=== PATIENT | male | born 1975 | race Caucasian/White ===

== ENCOUNTER 2022-06-01 20:33 | Emergency (ER) | payer SELFPAY ==
[~2022-06-01] VITALS: Ht 177.8 cm; Wt 104.3 kg
[2022-06-01 20:59] VITALS: BP_SYST 167
[2022-06-01 21:50] LABS: BASOPHILS # (AUTO) 0.1 K/uL (0.0-0.2); BASOPHILS % (AUTO) 0.6 % (0.0-2.0); EOSINOPHILS # (AUTO) 0.1 K/uL (0.0-0.4); EOSINOPHILS % (AUTO) 1.3 % (0.0-4.0); HEMATOCRIT 44.3 % (36-54); HEMOGLOBIN 14.4 g/dL (14.0-18.0); LYMPHOCYTES # (AUTO) 2.9 K/uL (1.0-5.5); LYMPHOCYTES % (AUTO) 28.2 % (20.5-51.5); MEAN CORPUSCULAR HEMOGLOBIN 25 pg (27-31); MEAN CORPUSCULAR HGB CONC 33 % (32-36); MEAN CORPUSCULAR VOLUME 77 fL (79.0-98.0); MONOCYTES # (AUTO) 0.9 K/uL (0.0-1.0); MONOCYTES % (AUTO) 8.6 % (1.7-9.3); NEUTROPHILS # (AUTO) 6.3 K/uL (1.8-7.7); NEUTROPHILS % (AUTO) 61.3 % (40.0-70.0); PLATELET COUNT (AUTO) 233 K/uL (130-430); RED BLOOD CELL COUNT(AUTO) 5.76 MIL/uL (4.2-6.2); RED CELL DISTRIBUTION WIDTH 13.6 % (9.0-15.0); WHITE BLOOD COUNT (AUTO) 10.3 K/uL (4.8-10.8)
[2022-06-01 22:00] LABS: CALCIUM 9.4 mg/dL (8.4-11.0); CREATININE 1.16 mg/dL (0.55-1.30); POTASSIUM 3.8 mmol/L (3.5-5.1)
[2022-06-01 22:42] LABS: TOTAL BILIRUBIN 0.2 mg/dL (0.0-1.0)
[2022-06-01 22:43] LABS: ALBUMIN 4.1 g/dL (3.4-4.8)
[2022-06-01 22:54] LABS: C-REACTIVE PROTEIN QUANT 3.6 mg/dL (0-0.5)
[2022-06-02] MEDS ORDERED: cefTRIAXone 1 GM VIAL IM ONE (00:45)
[2022-06-02] MEDS ORDERED: AZITHROMYCIN 250 MG TABLET PO ONE (00:45)
[2022-06-02] MEDS ORDERED: IBUPROFEN 600 MG TABLET PO ONE (01:00)
[2022-06-02] MEDS ORDERED: LIDOCAINE 1% 10 MG/ML, 20 ML MDV INJ ONE (01:00)
[2022-06-02] MEDS ORDERED: IBUP-1969 PO (01:22)
[2022-06-02] MEDS ORDERED: LEVO750T45 PO (01:22)
[2022-06-02 01:27] LABS: BILIRUBIN,URINE NEGATIVE (NEGATIVE); BLOOD, URINE NEGATIVE (NEGATIVE); CLARITY/URINE CLEAR (CLEAR); COLOR,URINE YELLOW (YELLOW); GLUCOSE,URINE NEGATIVE (NEGATIVE); KETONES,URINE NEGATIVE (NEGATIVE); LEUKOCYTE ESTERASE ,URINE 1+ (NEGATIVE); NITRITE, URINE NEGATIVE (NEGATIVE); PH,URINE 5.5 (5.0-8.0); PROTEIN URINE TRACE (NEGATIVE); UROBILINOGEN,URINE 0.2 (0.2-1.0)
[2022-06-02 01:36] VITALS: BP_SYST 142
[2022-06-02 03:40] LABS: BACTERIA,URINE None Seen /HPF (None Seen); RBC,URINE 0-3 /HPF (0-3); WBC,URINE 0-3 /HPF (0-3)
[2022-06-02 03:41] LABS: MUCUS,URINE None Seen /LPF (None Seen)
== END 2022-06-02 02:02 | disposition home or self-care (01) ==
LOC: SED 20:33
DX: N50.812 Left testicular pain (principal)
CPT/HCPCS: 36415; 76870; 80053; 81000; 84702; 85025; 86140; 87491; 96372; 99284; J0696; J2001; Q0144